=== PATIENT | female | born 1980 | race Caucasian/White ===

== ENCOUNTER 2016-12-08 16:43 | Emergency (ER) | payer OTHER ==
--- NOTE | ~2016-12-08 | US85 ---
[facility] A Service [facility] RADIOLOGY TEXT RESULTS PATIENT: CHRISTIANA OWEN LOCATION: SED : 82 UNIT #: [id number] AGE: [address]: Karlene Willams APRN SEX: F ORDER DR: [id number] [place] [id number] MR#: [id number] Acc #: [id number] NAME: CHRISTIANA OWEN. : 1980 SEX: F STUDY DATE/TIME: 12/08/2016 16:21 UNIT: SED ROOM: STUDY DESCRIPTION: [facility] Attending Physician: Karlene Willams A.P.R.N. Ordering Physician: Karlene Willams A.P.R.N. Primary Care Physician: Duke Salazar M.D. MEDICAL IMAGING REPORT This report is preliminary unless electronic signature is present. EXAM Left lower extremity venous duplex. DATE OF EXAM 12/08/2016 HISTORY Left lower extremity palpable mass. Proximal left calf for 3 days. Evaluate for deep vein thrombosis. TECHNIQUE Venous ultrasound examination of the left lower extremity was performed using grayscale, spectral Doppler and color flow Doppler imaging. FINDINGS The examination is negative. There is no evidence of left lower extremity deep venous thrombus from the groin to the lower calf. Visualized greater saphenous vein is also patent. IMPRESSION Negative examination. No evidence of left lower extremity DVT. Dictated by... Gerry Alcala M.D. THIS IS AN ELECTRONICALLY VERIFIED REPORT Gerry Alcala M.D. at 12/09/2016 2:18 PM KRT/jt [facility] A Service [facility] RADIOLOGY TEXT RESULTS PATIENT: CHRISTIANA OWEN LOCATION: SED : [birth year] UNIT #: [id number] AGE: [address]: Karlene Willams APRN SEX: F ORDER DR: TD: 12/08/2016 17:43 JOB #: [id number] MEDICAL IMAGING REPORT Page 1 of 1
== END 2016-12-08 17:18 | disposition home or self-care (01) ==
LOC: SED 16:43
DX: R22.42 Localized swelling, mass and lump, left lower limb (principal)
CPT/HCPCS: 93971; 99284

== ENCOUNTER → 2016-12-16 | Outpatient (CLI) | payer OTHER ==
--- NOTE | ~2016-12-16 | MR109 ---
[facility]. [facility] A Service of [facility] RADIOLOGY TEXT RESULTS PATIENT: CHRISTIANA OWEN LOCATION: [facility] : [birth year] UNIT #: [id number] AGE: [address]: Magdi Tee MD SEX: F ORDER DR: [id number] [address] [id number] O MR#: [id number] Acc #: [id number] NAME: CHRISTIANA OWEN. : 1980 SEX: F STUDY DATE/TIME: 12/16/2016 10:48 UNIT: [facility] ROOM: STUDY DESCRIPTION: MR Anastacio Extrem Wo Cont Lt Attending Physician: Magdi Tee M.D. Referring Physician: Magdi Tee M.D. Ordering Physician: Magdi Tee M.D. Primary Care Physician: Magdi Tee M.D. MRI CENTER REPORT This report is preliminary unless electronic signature is present. EXAM MRI of the left lower leg. HISTORY 36-year-old female with visible palpable mass anteromedial lower leg. Symptoms for 1.5 weeks. States it may be getting larger and is nontender and not associated with trauma. Recent ultrasound revealed no evidence of DVT. COMPARISON Left lower leg films 12/08/2016. TECHNIQUE Multiplanar, multiecho imaging was performed of the left lower leg utilizing a high field magnet dedicated protocol. Gel capsule was placed within the central portion of the suspected lesion. FINDINGS Examination demonstrates an abundance of subcutaneous fat, but no distinct encapsulated lipoma is identified. Normal subcutaneous reticulation and normal vascularity. There is a small amount of edema within the pretibial soft tissues, nonspecific, probably related to body habitus. The osseous structures appear normal. The deep compartment musculature and visualized neurovascular structures appear normal. IMPRESSION The area of interest was marked along the anterior medial aspect the lower leg and this appears to correspond to an abundance of subcutaneous fat, but a distinct soft tissue mass or encapsulated lipoma is not identified. No atypical features are identified within the subcutaneous tissues. There is a small amount of nonspecific pretibial edema. Dictated by... [facility] A Service of [facility] RADIOLOGY TEXT RESULTS PATIENT: CHRISTIANA OWEN LOCATION: [facility] : [birth year] UNIT #: [id number] AGE: [address]: Magdi Tee MD SEX: F ORDER DR: Aruna Cabezas M.D. THIS IS AN ELECTRONICALLY VERIFIED REPORT Aruna Cabezas M.D. at 12/21/2016 6:05 AM FRANCOIS/chely TD: 12/20/2016 11:49 JOB #: [id number] MRI CENTER REPORT Page 1 of 1
== END | disposition home or self-care (01) ==
LOC: SMRI 09:45
DX: R22.42 Localized swelling, mass and lump, left lower limb (principal)
CPT/HCPCS: 73718